=== PATIENT | male | born 1960 | race African-American/Black ===

== ENCOUNTER 2019-06-17 12:43 | Emergency (ER) | payer MEDICAID ==
[~2019-06-17] VITALS: Ht 170.2 cm; Wt 66.0 kg
[2019-06-17] MEDS ORDERED: KETOROLAC 30MG/ML VIAL IM ONE (13:15)
[2019-06-17 14:43] LABS: CLARITY URINE TURBID (CLEAR); KETONES URINE TRACE (NEGATIVE); LEUKOCYTE ESTERASE URINE 2+ (NEGATIVE); NITRITE URINE POSITIVE (NEGATIVE); OCCULT BLOOD URINE 3+ (NEGATIVE); PROTEIN URINE 3+ (NEGATIVE); SPECIFIC GRAVITY URINE 1.024 (1.005-1.030)
[2019-06-17 14:49] VITALS: BP 130/76
[2019-06-17 14:51] LABS: COLOR URINE BROWN (YELLOW)
== END 2019-06-17 14:51 | disposition home or self-care (01) ==
LOC: ER 13:22
DX: T83.018A Breakdown (mechanical) of other urinary catheter, initial encounter (principal); Y83.8 Other surgical procedures as the cause of abnormal reaction of the patient, or of later complication, without mention of misadventure at the time of the procedure; N48.89 Other specified disorders of penis; N40.0 Benign prostatic hyperplasia without lower urinary tract symptoms; Y92.9 Unspecified place or not applicable; Z85.46 Personal history of malignant neoplasm of prostate; Z86.73 Personal history of transient ischemic attack (TIA), and cerebral infarction without residual deficits
CPT/HCPCS: 81003; 96372; 99283; J1885; Z7610; A4315